=== PATIENT | male | born 1935 | race Caucasian/White ===

== ENCOUNTER 2017-08-03 05:21 | Inpatient (IN) | payer MEDICARE, OTHER ==
[2017-08-03] MEDS: ONDANSETRON PF 4 MG/2 ML VIAL. IV (06:00)
[2017-08-03 06:11] LABS: ADD MAN DIFF? NO
[2017-08-03 06:14] LABS: BASO # 0.1 x10^3/uL (0.0-0.2); BASO % 1 % (0-3); EOS # 0.1 x10^3/uL (0.0-0.7); EOS % 2 % (0-3); HEMATOCRIT 43.6 % (39.0-53.0); HEMOGLOBIN 14.4 g/dL (13.0-17.5); LYMPH # 1.2 x10^3/uL (1.0-4.8); LYMPH % 17 % (24-48); MEAN CORPUSCULAR HEMOGLOBIN 31 pg (25-35); MEAN CORPUSCULAR HGB CONC 33 g/dL (31-37); MEAN CORPUSCULAR VOLUME 93 fL (79-100); MONO # 1.1 x10^3/uL (0.0-1.1); MONO % 16 % (0-9); NEUT # 4.7 x10^3uL (1.8-7.7); NEUT % 65 % (31-73); PLATELET COUNT 265 x10^3/uL (140-400); RED BLOOD COUNT 4.71 x10^6/uL (4.30-5.70); RED CELL DISTRIBUTION WIDTH 14.2 % (11.5-14.5); WHITE BLOOD COUNT 7.2 x10^3/uL (4.0-11.0)
[2017-08-03] MEDS: IV NORMAL SALINE 1000ML BAG 1,000 ML IV ×3 (06:17→12:29)
[2017-08-03 06:25] LABS: BILIRUBIN,URINE NEGATIVE (NEG); CLARITY,URINE CLOUDY; COLOR,URINE YELLOW; GLUCOSE,URINE NEGATIVE (NEG); NITRITE,URINE NEGATIVE (NEG); PH,URINE 5.5; PROTEIN,URINE 100 mg/dL (NEG-TRACE)
[2017-08-03 06:31] LABS: ANION GAP 8 (6-14); BLOOD UREA NITROGEN 19 mg/dL (8-26); BUN/CREATININE RATIO 15 (6-20); CALCIUM 8.3 mg/dL (8.5-10.1); CARBON DIOXIDE 26 mmol/L (21-32); CHLORIDE 103 mmol/L (98-107); CREATININE 1.3 mg/dL (0.7-1.3); GLUCOSE 95 mg/dL (70-99); POTASSIUM 4.3 mmol/L (3.5-5.1); SODIUM 137 mmol/L (136-145)
[2017-08-03 06:32] LABS: RBC,URINE >40 /HPF (0-2)
[2017-08-03 06:33] LABS: ALBUMIN 2.6 g/dL (3.4-5.0); ALBUMIN/GLOBULIN RATIO 0.7 (1.0-1.7); ALK PHOS 68 U/L (46-116); ALT (SGPT) 37 U/L (16-63); AST (SGOT) 36 U/L (15-37); BACTERIA,URINE FEW /HPF (0-FEW); TOTAL BILIRUBIN 0.5 mg/dL (0.2-1.0); TOTAL PROTEIN 6.1 g/dL (6.4-8.2)
[2017-08-03 06:40] LABS: TROPONINI < 0.017 ng/mL (0.000-0.055)
[2017-08-03 06:45] LABS: LACTIC ACID 1.1 mmol/L (0.4-2.0)
[2017-08-03 06:47] LABS: INR 1.2 (0.8-1.1); PARTIAL THROMBOPLASTIN TIME 37 SEC (24-38); PROTHROMBIN TIME PATIENT 14.8 SEC (11.7-14.0)
[2017-08-03 06:48] LABS: NT-PRO BNP 240 pg/mL (0-449)
[2017-08-03 06:48] LABS: CKMB MASS < 0.5 ng/mL (0.0-3.6); CREATINE KINASE 20 U/L (39-308)
[2017-08-03 06:50] LABS: D-DIMER 0.84 ug/mlFEU (0.00-0.50)
[2017-08-03] MEDS ORDERED: CONTRAST GIVEN MC (07:45)
[2017-08-03] MEDS: IOHEXOL 300 MG/ML 100ML VIAL. IV ×2 (07:57)
[2017-08-03] MEDS ORDERED: ONDANSETRON PF 4 MG/2 ML VIAL. IV (08:45)
[2017-08-03] MEDS ORDERED: PIP/TAZO PER PHARMACY MC (11:45)
[2017-08-03] MEDS: BUDESONIDE 0.5 MG/2 ML NEBU. NEB ×2 (12:00→19:08)
[2017-08-03] MEDS ORDERED: VANCOMYCIN 1.75 GM in IV DEXTROSE 5 %-0.2 % NACL 500 ML IV (12:00)
[2017-08-03] MEDS: PIPERACILLIN/TAZO IV Push 3.375 GM VIAL. IVP ×2 (12:29→17:55)
[2017-08-03] MEDS: methylPREDNISolone SOD SUCC PF 125 MG/2 ML VIAL. IV (12:30)
[2017-08-03] MEDS: VANCOMYCIN 1.5 GM in IV DEXTROSE 5 %-0.2 % NACL 500 ML IV (12:51)
[2017-08-03 15:04] LABS: TROPONINI < 0.017 ng/mL (0.000-0.055)
[2017-08-03] MEDS: ENOXAPARIN 40 MG/0.4 ML SYRINGE. SQ (15:08)
[2017-08-03] MEDS: LISINOPRIL 5 MG TABLET. PO (15:09)
[2017-08-03] MEDS: VANCOMYCIN PER PHARMACY MC (15:18)
[2017-08-03] MEDS: IPRATRPIUM/ALBUTEROL 0.5/2.5MG 3 ML NEBU. NEB ×3 (16:32→22:00)
[2017-08-03 18:03] LABS: INFLUENZA A PATIENT POSITIVE (NEGATIVE); INFLUENZA B PATIENT NEGATIVE (NEGATIVE); OBC FLU VALID
[2017-08-03] MEDS: OSELTAMIVIR 30 MG CAPSULE PO (19:13)
[2017-08-03 21:17] LABS: TROPONINI < 0.017 ng/mL (0.000-0.055)
[2017-08-03] MEDS: TAMSULOSIN 0.4 MG CAP.ER.24H. PO (21:44)
[2017-08-03] MEDS: LACTOBACILLUS RHAMNOSUS GG 1 CAPSULE. PO (21:44)
[2017-08-04] MEDS: PIPERACILLIN/TAZO IV Push 3.375 GM VIAL. IVP ×3 (00:41→12:00)
[2017-08-04] MEDS: IV NORMAL SALINE 1000ML BAG 1,000 ML IV (00:44)
[2017-08-04] MEDS: IPRATRPIUM/ALBUTEROL 0.5/2.5MG 3 ML NEBU. NEB ×5 (07:13→19:34)
[2017-08-04] MEDS: BUDESONIDE 0.5 MG/2 ML NEBU. NEB ×2 (07:13→19:35)
[2017-08-04 07:40] LABS: BASO % 0 % (0-3); EOS % 0 % (0-3); HEMOGLOBIN 13.1 g/dL (13.0-17.5); LYMPH # 0.5 x10^3/uL (1.0-4.8); LYMPH % 9 % (24-48); MEAN CORPUSCULAR HEMOGLOBIN 30 pg (25-35); MEAN CORPUSCULAR HGB CONC 33 g/dL (31-37); MEAN CORPUSCULAR VOLUME 92 fL (79-100); MONO # 0.1 x10^3/uL (0.0-1.1); MONO % 2 % (0-9); NEUT # 5.3 x10^3uL (1.8-7.7); NEUT % 89 % (31-73); PLATELET COUNT 256 x10^3/uL (140-400); RED BLOOD COUNT 4.36 x10^6/uL (4.30-5.70); WHITE BLOOD COUNT 5.9 x10^3/uL (4.0-11.0)
[2017-08-04 07:52] LABS: ADD MAN DIFF? YES
[2017-08-04 08:02] LABS: ANION GAP 12 (6-14); BLOOD UREA NITROGEN 22 mg/dL (8-26); CALCIUM 7.8 mg/dL (8.5-10.1); CARBON DIOXIDE 22 mmol/L (21-32); CHLORIDE 105 mmol/L (98-107); CREATININE 1.3 mg/dL (0.7-1.3); GLUCOSE 144 mg/dL (70-99); POTASSIUM 3.9 mmol/L (3.5-5.1); SODIUM 139 mmol/L (136-145)
[2017-08-04] MEDS: predniSONE 20 MG TABLET PO (09:06)
[2017-08-04] MEDS: LACTOBACILLUS RHAMNOSUS GG 1 CAPSULE. PO ×2 (09:06→20:10)
[2017-08-04] MEDS: OSELTAMIVIR 30 MG CAPSULE PO ×2 (09:06→20:10)
[2017-08-04] MEDS: LISINOPRIL 5 MG TABLET. PO (09:06)
[2017-08-04] MEDS: PNEUMOC CONJ VACC 23-VALENT 0.5 ML VIAL. VAX IM (09:08)
[2017-08-04 09:54] LABS: % BANDS 7 % (0-9); % LYMPHS 13 % (24-48); % MONOS 2 % (0-10); % SEGS 78 % (35-66)
[2017-08-04 09:55] LABS: PLT ESTIMATE ADEQUATE (ADEQUATE)
[2017-08-04] MEDS ORDERED: VANCOMYCIN 1 GM in IV 1/2 NORMAL SALINE 250 ML IV (13:00)
[2017-08-04] MEDS: ENOXAPARIN 40 MG/0.4 ML SYRINGE. SQ (16:33)
[2017-08-04] MEDS: TAMSULOSIN 0.4 MG CAP.ER.24H. PO (20:10)
[2017-08-05] MEDS: BUDESONIDE 0.5 MG/2 ML NEBU. NEB ×2 (06:22→20:01)
[2017-08-05] MEDS: IPRATRPIUM/ALBUTEROL 0.5/2.5MG 3 ML NEBU. NEB ×5 (06:22→20:01)
[2017-08-05] MEDS: predniSONE 20 MG TABLET PO (09:20)
[2017-08-05] MEDS: OSELTAMIVIR 30 MG CAPSULE PO ×2 (09:21→20:31)
[2017-08-05] MEDS: LACTOBACILLUS RHAMNOSUS GG 1 CAPSULE. PO ×2 (10:37→20:31)
[2017-08-05] MEDS: LISINOPRIL 5 MG TABLET. PO (10:38)
[2017-08-05 13:26] LABS: BASO % 0 % (0-3); EOS % 0 % (0-3); HEMATOCRIT 39.1 % (39.0-53.0); HEMOGLOBIN 12.7 g/dL (13.0-17.5); LYMPH # 0.7 x10^3/uL (1.0-4.8); LYMPH % 6 % (24-48); MEAN CORPUSCULAR HEMOGLOBIN 30 pg (25-35); MEAN CORPUSCULAR HGB CONC 32 g/dL (31-37); MEAN CORPUSCULAR VOLUME 93 fL (79-100); MONO # 0.2 x10^3/uL (0.0-1.1); MONO % 1 % (0-9); NEUT # 12.7 x10^3uL (1.8-7.7); NEUT % 93 % (31-73); PLATELET COUNT 263 x10^3/uL (140-400); RED BLOOD COUNT 4.23 x10^6/uL (4.30-5.70); RED CELL DISTRIBUTION WIDTH 14.5 % (11.5-14.5); WHITE BLOOD COUNT 13.6 x10^3/uL (4.0-11.0)
[2017-08-05 13:27] LABS: ADD MAN DIFF? YES
[2017-08-05 13:40] LABS: ANION GAP 10 (6-14); BLOOD UREA NITROGEN 22 mg/dL (8-26); CALCIUM 7.9 mg/dL (8.5-10.1); CARBON DIOXIDE 24 mmol/L (21-32); CHLORIDE 105 mmol/L (98-107); CREATININE 1.3 mg/dL (0.7-1.3); GLUCOSE 113 mg/dL (70-99); POTASSIUM 3.4 mmol/L (3.5-5.1); SODIUM 139 mmol/L (136-145)
[2017-08-05 17:18] LABS: % LYMPHS 7 % (24-48); % MONOS 3 % (0-10); % SEGS 90 % (35-66)
[2017-08-05 17:19] LABS: CRENATED RBC PRESENT; OVALOCYTES OCC; PLT ESTIMATE INCREASED (ADEQUATE); POLYCHROMASIA SLIGHT
[2017-08-05] MEDS: ASPIRIN ENTERIC COATED 81 MG TABLET.DR. PO (17:33)
[2017-08-05] MEDS: ENOXAPARIN 40 MG/0.4 ML SYRINGE. SQ (17:33)
[2017-08-05] MEDS: MEROPENEM IV Push 500 MG VIAL. IVP (19:53)
[2017-08-05] MEDS: TAMSULOSIN 0.4 MG CAP.ER.24H. PO (20:31)
[2017-08-06] MEDS ORDERED: MEROPENEM 500 MG in IV NORMAL SALINE 50ML 50 ML IV
[2017-08-06] MEDS: MEROPENEM IV Push 500 MG VIAL. IVP ×5 (00:03→23:46)
[2017-08-06] MEDS: IPRATRPIUM/ALBUTEROL 0.5/2.5MG 3 ML NEBU. NEB ×5 (06:00→18:51)
[2017-08-06] MEDS: BUDESONIDE 0.5 MG/2 ML NEBU. NEB ×2 (07:27→18:51)
[2017-08-06] MEDS: LISINOPRIL 5 MG TABLET. PO (09:59)
[2017-08-06] MEDS: ASPIRIN ENTERIC COATED 81 MG TABLET.DR. PO (10:00)
[2017-08-06] MEDS: LACTOBACILLUS RHAMNOSUS GG 1 CAPSULE. PO ×2 (10:06→20:57)
[2017-08-06] MEDS: OSELTAMIVIR 30 MG CAPSULE PO ×2 (10:07→20:57)
[2017-08-06] MEDS: predniSONE 20 MG TABLET PO (10:08)
[2017-08-06] MEDS: POTASSIUM CHLORIDE 20 MEQ TABLET.ER. PO (16:19)
[2017-08-06] MEDS: TAMSULOSIN 0.4 MG CAP.ER.24H. PO (20:57)
[2017-08-07] MEDS: MEROPENEM IV Push 500 MG VIAL. IVP ×4 (04:50→22:13)
[2017-08-07] MEDS ORDERED: MORPHINE SULFATE 2 MG/ML DISP.SYRIN. IV (07:00)
[2017-08-07] MEDS ORDERED: LIDOCAINE 1% PF 2 ML VIAL. ID (07:00)
[2017-08-07] MEDS ORDERED: HYDROmorphone 2 MG/ML VIAL IV (07:00)
[2017-08-07] MEDS ORDERED: fentaNYL PF VIAL 100 MCG/2 ML VIAL IV ×2 (07:00)
[2017-08-07] MEDS ORDERED: PROCHLORPERAZINE 10 MG/2 ML VIAL. IV (07:00)
[2017-08-07] MEDS ORDERED: ONDANSETRON PF 4 MG/2 ML VIAL. IV (07:00)
[2017-08-07] MEDS: BUDESONIDE 0.5 MG/2 ML NEBU. NEB ×2 (07:10→20:00)
[2017-08-07] MEDS: IPRATRPIUM/ALBUTEROL 0.5/2.5MG 3 ML NEBU. NEB ×5 (07:10→22:00)
[2017-08-07] MEDS: LACTOBACILLUS RHAMNOSUS GG 1 CAPSULE. PO ×2 (08:21→22:13)
[2017-08-07] MEDS: predniSONE 20 MG TABLET PO (08:21)
[2017-08-07] MEDS: OSELTAMIVIR 30 MG CAPSULE PO ×2 (08:43→22:13)
[2017-08-07] MEDS: LISINOPRIL 5 MG TABLET. PO (08:43)
[2017-08-07] MEDS: IV RINGERS,LACTATED 1000ML 1,000 ML IV (15:41)
[2017-08-07] MEDS ORDERED: FAMOTIDINE 20 MG/2 ML VIAL (15:59)
[2017-08-07] MEDS ORDERED: DEXAMETHASONE SOD PHOS 20 MG/5 ML VIAL. (15:59)
[2017-08-07] MEDS ORDERED: PROPOFOL 20 ML IV (15:59)
[2017-08-07] MEDS ORDERED: LIDOCAINE 2% PF Vial for OR 5 ML VIAL. (15:59)
[2017-08-07] MEDS ORDERED: fentaNYL PF VIAL 100 MCG/2 ML VIAL (15:59)
[2017-08-07] MEDS ORDERED: ONDANSETRON PF 4 MG/2 ML VIAL. (15:59)
[2017-08-07] MEDS ORDERED: HYDROCORTISONE SOD SUCC/PF 100 MG/2 ML VIAL. (16:12)
[2017-08-07] MEDS ORDERED: ePHEDrine PF IN SALINE 50 MG/5 ML DISP.SYRIN IV (16:35)
[2017-08-07] MEDS ORDERED: PHENYLEPHRINE in 0.9% NACL PF 1 MG/10 ML SYRINGE. IV ×2 (17:21→18:27)
[2017-08-07] MEDS ORDERED: DESFLURANE > 120 MINUTES IH (17:52)
[2017-08-07] MEDS: TAMSULOSIN 0.4 MG CAP.ER.24H. PO (22:13)
[2017-08-08] MEDS: ALBUTEROL SULFATE 2.5 MG/3 ML NEBU. NEB (00:03)
[2017-08-08] MEDS: MEROPENEM IV Push 500 MG VIAL. IVP ×2 (05:08→12:26)
[2017-08-08] MEDS: IPRATRPIUM/ALBUTEROL 0.5/2.5MG 3 ML NEBU. NEB ×2 (07:35→11:29)
[2017-08-08] MEDS: BUDESONIDE 0.5 MG/2 ML NEBU. NEB (07:35)
[2017-08-08] MEDS: LISINOPRIL 5 MG TABLET. PO (09:34)
[2017-08-08] MEDS: OSELTAMIVIR 30 MG CAPSULE PO (09:35)
[2017-08-08] MEDS: predniSONE 20 MG TABLET PO (09:35)
[2017-08-08] MEDS: LACTOBACILLUS RHAMNOSUS GG 1 CAPSULE. PO (09:35)
== END 2017-08-08 16:23 | disposition home health service (06) | DRG 853 ==
LOC: ER 05:21 → 5 NORTH 08:00
PROC: 0V508ZZ Destruction of Prostate, Via Natural or Artificial Opening Endoscopic (ICD-10-PCS; principal; 2017-08-07 15:15)
PROC: 0T5B8ZZ Destruction of Bladder, Via Natural or Artificial Opening Endoscopic (ICD-10-PCS; 2017-08-07 15:15)
PROC: 0TCB8ZZ Extirpation of Matter from Bladder, Via Natural or Artificial Opening Endoscopic (ICD-10-PCS; 2017-08-07 15:15)
DX: A41.9 Sepsis, unspecified organism (principal); J18.9 Pneumonia, unspecified organism; J10.08 Influenza due to other identified influenza virus with other specified pneumonia; I48.0 Paroxysmal atrial fibrillation; J15.9 Unspecified bacterial pneumonia; E44.0 Moderate protein-calorie malnutrition; I48.2 Chronic atrial fibrillation; J44.0 Chronic obstructive pulmonary disease with (acute) lower respiratory infection; J44.1 Chronic obstructive pulmonary disease with (acute) exacerbation; N13.8 Other obstructive and reflux uropathy; N39.0 Urinary tract infection, site not specified; E86.0 Dehydration; Z68.21 Body mass index [BMI] 21.0-21.9, adult; I10 Essential (primary) hypertension; J10.1 Influenza due to other identified influenza virus with other respiratory manifestations; M19.90 Unspecified osteoarthritis, unspecified site; N20.0 Calculus of kidney; N21.0 Calculus in bladder; N40.1 Benign prostatic hyperplasia with lower urinary tract symptoms; T38.0X5A Adverse effect of glucocorticoids and synthetic analogues, initial encounter; Z82.49 Family history of ischemic heart disease and other diseases of the circulatory system; Z87.442 Personal history of urinary calculi; Z87.820 Personal history of traumatic brain injury; Z87.891 Personal history of nicotine dependence
CPT/HCPCS: 36415; 71045; 71275; 80048; 80053; 81001; 82553; 83605; 83880; 84484; 85007; 85025; 85379; 85610; 85730; 87040; 87804; 87804-59; 90732; 93005; 93306; 94640; 94667; 94668; 94760; 96360; 97110-GP; 97116-GP; 97162-GP; 97166-GO; 97530-GO; 97530-GP; 97535-GO; 99285; 99285-25; C1769; J1100; J1650; J1720; J2185; J2370; J2405; J2543; J2704; J2930; J3010; J3370; J7030; J7120; J7512; J7613; J7620; J7626; Q9967; S0028